=== PATIENT | female | born 1960 | race Caucasian/White ===

== ENCOUNTER → 2023-06-15 10:08 | Outpatient (REF) | payer BC, SELFPAY | LOC: RAD 10:08 | PROVIDERS: ATTENDING PHYSICIAN Internal Medicine | DX: F17.210 Nicotine dependence, cigarettes, uncomplicated (principal); Z12.31 Encounter for screening mammogram for malignant neoplasm of breast | CPT/HCPCS: 71271 ==

== ENCOUNTER → 2023-06-18 16:52 | Outpatient (REF) | payer BC, SELFPAY | LOC: WDC 16:52 | PROVIDERS: ATTENDING PHYSICIAN Internal Medicine | DX: Z12.31 Encounter for screening mammogram for malignant neoplasm of breast (principal) | CPT/HCPCS: 77063; 77067 ==

== ENCOUNTER → 2023-08-06 16:52 | Outpatient (REF) | payer BC, SELFPAY | LOC: HWRAD 16:52 | PROVIDERS: ATTENDING PHYSICIAN Internal Medicine | DX: M25.562 Pain in left knee (principal) | CPT/HCPCS: 73564 ==

== ENCOUNTER → 2023-12-12 08:38 | Outpatient (REF) | payer BC, SELFPAY | LOC: DHSLP 08:38 | PROVIDERS: ATTENDING PHYSICIAN Internal Medicine | DX: G47.33 Obstructive sleep apnea (adult) (pediatric) (principal) | CPT/HCPCS: 95800 ==

== ENCOUNTER 2024-06-30 17:04 | Observation (INO) | payer OTHER, SELFPAY ==
[2024-06-30] VITALS (10 sets, daily range): BP systolic 104–125; BP diastolic 60–93; PULSE 70; BMI 36.1; BMI 35.1
--- NOTE | 2024-06-30 12:07 | ED.GENMED ---
History of Present Illness
General
Chief Complaint: Musculo-Skeletal Complaint
Source: patient
Time Seen by Provider: 06/30/24 11:55
History of Present Illness
History of Present Illness:
64-year-old female presenting to the emergency department from Dr. Santiago office for rehab/correction facility placement. Patient was diagnosed with a left tibial plateau fracture this past after sustaining a fall, seen at [facility] and discharged home the same day. Patient felt she would be able to care for herself with family at home but states it is just not working and she has had increased pain and concerns for falls. She has been taking her p.o. Percocet with
relief every 8 hours although she does note pain starts to creep back up around 6 hours. No other concerns presently.
Past History
Past History
ED Past Medical History: Hypercholesterolemia
ED Past Surgical History: None
Social History
Tobacco: Smoker
Alcohol: None
Drug: None
Personal:
Living: with family
Review of Systems
Review of Systems
All Other Systems: ROS reviewed and negative except as documented in HPI and ROS
Phy Exam
Physical Exam
Physical Exam:
GENERAL: Alert , in no apparent distress
EYE: conjunctiva clear
Head: Normocephalic atraumatic
NECK: Supple,
ENT: mmm.
LUNGS: no acute respiratory distress
NEUROLOGICAL: Alert and oriented
SKIN: Warm and dry, skin intact.
MUSCULOSKELETAL: well perfused. Left lower extremity is held abdomen full extension with knee immobilizer.
PSYCH: Normal and appropriate interaction.
Scores
Heart Failure Risk
Heart Failure Risk Score: Not Applicable
Heart Score for Chest Pain Patients
STEMI patient?: Not applicable
Withdrawal Assessment of Alcohol
Withdrawal Assessment Completed?: Not applicable
Course
Orders/Labs/Results
Orders:
Orders
06/30/24 11:55
Case Management Consult ONCE
Case Management Consult: Discharge Planning
Physical Therapy Consult [Pt Eval And Treat] Urgent
Activity Level: Ambulate
06/30/24 13:05
Occupational Therapy Consult [Ot Eval And Treat] Urgent
Vital Signs
Initial and Last Documented VS:
Initial Vital Signs
Temp Pulse Resp BP Pulse Ox
98.4 F 85 16 104/65 96
06/30/24 10:24 06/30/24 10:24 06/30/24 10:24 06/30/24 10:24 06/30/24 10:24
Last Documented Vital Signs
Temp Pulse Resp BP Pulse Ox
98.4 F 85 16 106/93 97
06/30/24 10:24 06/30/24 10:24 06/30/24 10:24 06/30/24 15:20 06/30/24 15:20
MDM/Problems Addressed
Differential Diagnosis Includes:
Known tibial plateau fracture with inability to perform activities of daily living safely
MDM/Problems Addressed:
64-year-old female presenting to the ER at the request of her orthopedic surgeon to be placed at correction facility/rehab due to recent tibial plateau fracture with inability to perform activities of daily living. Patient took her p.o.
Percocet at 11:00, states pain is currently under control. Will order case management consult and physical therapy consult. Disposition pending.
*Pulse Oximetry
Patient hypoxic: no
*Critical Care Note
Total Time (30-74mins, 75-104mins- exclusive of procedures): Not Applicable
Data Reviewed
Review of Other/Old Records Reveals: Records
Patient Management
Discussion with other providers: Hospitalist
Escalation/DeEscalation of care consider admission/obs:
Case management unfortunately unable to place patient at correction facility/rehab today. She is unsafe to be discharged home and increased fall risk. Will admit to hospitalist for continued care until patient can be placed at correction
facility.
ED Attending Note
-
Portions of this chart may have been created with voice recognition software.� Occasional wrong word or��sound alike� substitutions may have occurred due to the inherent limitations of voice recognition software.
Discharge Plan
Departure
Patient Disposition: Admit
Date of Disposition: 06/30/24
Time of Disposition: 15:03
Presentation/result/management discussed w/ accepting MD/DO: Hospitalist
Discharge Problem:
Closed fracture of left tibial plateau
Prescriptions:
No Action
Repatha SureClick 140 mg/mL Pen Injector
140 mg SC Q2W
oxycodone-acetaminophen 5-325 mg Tablet
1 tab PO Q6HPRN PRN (Reason: severe pain)
cholecalciferol (vitamin D3) [Vitamin D3] 25 mcg (1,000 unit) Tablet
25 mcg PO DAILY
Ozempic 0.25 mg or 0.5 mg(2 mg/1.5 mL) Pen Injector
0.5 mg SC FR
Rx Instructions:
for 4 weeks
Referrals:
UNKNOWN,NO INTERVIEW [Family Provider] -
Interventions
Interventions:
*Risk Screen - Suicide Last Done: 06/30/24 10:24
*General Assessment Last Done: 06/30/24 10:24
*Neglect/Abuse Screening Last Done: 06/30/24 10:24
*ED- Fall Risk Assessment Last Done: 06/30/24 12:05
*ED COVID-19 Vaccine History Last Done: 06/30/24 10:23
ED-Musculoskeletal Assessment Last Done: 06/30/24 15:01
Discharge Date and Time
Print Language: ARMENIAN
--- NOTE | 2024-06-30 13:54 | CM ---
Addendum entered by Luciana Menchaca 06/30/24 15:08:
[employer] contacted senior care facilities for bed availability; No Bed @ [facility]; [facility] declined referral; [facility] will review insurance; and get back to us with status.
[employer] Writer contacted patient's insurance company; patient's plan does not include skilled rehab coverage
Per patient's Ortho physician, Dr. Santiago, patient is NWB LLE for 5-6 weeks; patient reported that she has no one to assist her in the home and does not have the means to self pay for services
ED Physician notified; patient is being admitted
Original Note:
Met with patient at bedside; initial assessment and case management consult completed
Pharmacy verified: [facility]
Family Physician verified: Dr. Carlisle @ [email or web address];
Patient lives with her roommate in a one floor manufactured home; bathroom has stall shower w/ bench, grab bar
At baseline, she was independent with ADLs; unemployed; does not drive
Currently unable to weight bear to ambulate
Will need ambulance transportation
PT/OT recommended SNF; patient is agreeable; SNF site options in her zip code identified; referrals sent to [facility], [facility], and [facility]
Plan: Discharge to SNF pending bed availability and Authorization approval
--- NOTE | 2024-06-30 16:39 | HPS.HSE ---
Addendum entered and electronically signed by Tu Otero MD 06/30/24 16:53:
Non weight bearing for 5-6 weeks as per ortho.
Original Note:
Family Physician
-
Family Physician: NO INTERVIEW UNKNOWN
Chief Complaint
-
knee pain
History of Present Illness
64-year-old female past medical history of psoriatic arthritis, diabetes, hyperlipidemia, depression, obesity, who suffered a fall this past and had a left tibial plateau fracture with knee pain. She was seen at [facility] and
discharged home the same day. She felt like she was able to care for herself but was not able to. She has increased pain and is concerned about falling again. Cannot walk to bathroom. She has been taking p.o. Percocet with relief every 8 hours
although she does note pain started to return around [address] Mckeon in the office today who recommended that she come in for rehab placement.
Smokes half a pack of cigarettes per day. Drinks alcohol 2 times per week.
Medical History
Past Medical History
Past Medical History: Reports Other ( psoriatic arthritis, diabetes, hyperlipidemia, depression, obesity)
Past Surgical History: Reports None
Social History
Tobacco: Smoker
Alcohol: Occasional
Drug: None
Family History
Family History: Not pertinent
Allergies / Home Medications
Allergies reflects when Allergies were last updated in [facility].
Home Medications with original date entered in [facility]
Allergy/Medication List:
Allergies
Allergy/AdvReac Type Severity Reaction Status Date / Time
strawberry Allergy Hives Verified 06/30/24 10:26
Home Medications
cholecalciferol (vitamin D3) 25 mcg (1,000 unit) tablet (Vitamin D3) 25 mcg PO DAILY 06/30/24
evolocumab 140 mg/mL subcutaneous pen injector (Repatha SureClick) 140 mg SC Q2W 06/30/24
oxycodone-acetaminophen 5 mg-325 mg tablet 1 tab PO Q6HPRN PRN severe pain 06/30/24
semaglutide 0.25 mg or 0.5 mg (2 mg/1.5 mL) subcutaneous pen injector (Ozempic) 0.5 mg SC FR 06/30/24
Review of Systems
-
History Source: Patient
A 12 point ROS was completed and negative except as noted: Yes
Constitutional: Reports No Symptoms
EENT: Reports No Symptoms
Respiratory: Reports No Symptoms
Cardiac: Reports No Symptoms
Abdomen/GI: Reports No Symptoms
: Reports No Symptoms
Musculoskeletal: Reports No Symptoms
Skin: Reports No Symptoms
Neurological: Reports No Symptoms
Endocrine: Reports No Symptoms
Hematologic/Lymphatic: Reports No Symptoms
Psych: Reports No Symptoms
Physical Exam
Vital Signs
Vital Signs
Temp Pulse Resp BP Pulse Ox
98.4 F 85 16 125/74 93
06/30/24 10:24 06/30/24 10:24 06/30/24 10:24 06/30/24 16:01 06/30/24 16:15
Physical Exam
General: Well Developed, Well Nourished and No Apparent Distress
HEENT: NormoCephalic, Moist mucous membranes and Atraumatic
Respiratory: Clear
Cardiac: S1/S2 and Regular Rhythm; No Murmur or Rub
GI: Soft, Non Tender, Non Distended and Normal Bowel Sounds; No Organomegaly
Rectal: Deferred by Provider
Musculoskeletal: No Clubbing, No Cyanosis and No Edema
Skin: No Rash
Neuro: Nonfocal/grossly intact
Data Reviewed
-
Lab Data: Labs Reviewed by me
Old Records: Reviewed
Impression/Plan
-
IMPRESSION:
PLAN:
# Left tibial plateau fracture after a fall
- PT/OT, case management unable to place today
- Continue Percocet
- Wearing brace
Psoriatic arthritis
Type 2 diabetes
- On semaglutide
Hyperlipidemia
- On Repatha
Active smoker
- Smokes half pack of cigarettes per day.
Full code
DVT prophylaxis�heparin
Regular diet
[2024-06-30] MEDS: HEPARIN SC (21:29)
[2024-06-30] MEDS: DESENEX/MITRAZOL/ZEASORB 1 APPLIC TOPICAL (22:43)
[2024-06-30 23:53] LABS: Glucose - Point of Care 113 mg/dl (70-99)
[2024-07-01] MEDS: PERCOCET 5/325 1 TABLET PO ×2 (05:28→16:03)
[2024-07-01 07:40] VITALS: BP 132/71
[2024-07-01 08:48] LABS: % Basophils 0.7 % (0-2); % Eosinophils 2.1 % (0-6); % Immature Granulocytes 0.3 % (0-0.5); % Lymphocytes 21.1 % (20.5-51.1); % Monocytes 8.1 % (1.7-9.3); % Neutrophils 67.7 % (42.2-75.2); Absolute Basophils 0.1 10^3/uL (0-0.2); Absolute Eosinophils 0.3 10^3/uL (0-0.7); Absolute Immature Granulocytes 0.1 10^3/uL (0-0.05); Absolute Lymphocytes 3.2 10^3/uL (1.2-3.4); Absolute Monocytes 1.2 10^3/uL (0.1-0.6); Absolute Neutrophils 10.4 10^3/uL (1.4-6.5); Hematocrit 42.2 % (37.0-47.0); Hemoglobin 13.9 g/dL (12.0-16.0); Mean Corp Hgb Conc. 32.9 g/dL (33.0-37.0); Mean Corpuscular Hgb 29.1 pg (27.0-31.0); Mean Corpuscular Volume 88.3 fL (81.0-99.0); Mean Platelet Volume 9.1 fL (7.4-10.4); Nucleated Red Blood Cells % 0 %; Platelet Count 506 10^3/uL (130-400); Red Blood Cell Count 4.78 10^6/uL (4.20-5.40); Red Cell Dist. Width 14.9 % (11.5-14.5); White Blood Cell Count 15.3 10^3/uL (4.8-10.8)
[2024-07-01] MEDS: VITAMIN D3 (cholecalciferol) 25 MCG PO (09:07)
[2024-07-01] MEDS: DESENEX/MITRAZOL/ZEASORB 1 APPLIC TOPICAL ×2 (09:08→20:41)
[2024-07-01] MEDS: HEPARIN SC ×2 (09:15→20:40)
[2024-07-01 09:23] LABS: ALT (SGPT) 28 U/L (0-35); AST (SGOT) 30 U/L (14-36); Albumin 3.7 g/dl (3.5-5.0); Alkaline Phosphatase 85 U/L (38-126); Blood Urea Nitrogen 10 mg/dl (7-17); Calcium 10.4 mg/dl (8.4-10.2); Carbon Dioxide 28 mmol/L (22-30); Chloride 106 mmol/L (98-107); Estimated Creatinine Clearance 102 ml/min; Glucose 112 mg/dl (70-99); Potassium 4.7 mmol/L (3.5-5.1); Sodium 141 mmol/L (135-145); Total Bilirubin 0.7 mg/dl (0.2-1.3); Total Protein 6.2 g/dl (6.3-8.2); eGFR > 60.00
--- NOTE | 2024-07-01 10:20 | CM ---
Addendum entered by Ness Vidal 07/02/24 13:59:
late entry, Observation form provided
Addendum entered by Ness Vidal 07/01/24 15:00:
Spoke with [facility] department, they will see patient and go over medicaid and qualifications.
Cm discussed possibly going on [employer] and applying for insurance if she does not qualify.
Financial form for skilled rehab being completed by patient.
Went over costs for private pay for skilled rehab and private pay for VN, per patient she does not have the funds.
Again discussed possibility of going home with a friend or family member, patient says she has no one that can stay with her and she is unable to get up from a seated position without assistance. (NWB)
Addendum entered by Ness Vidal 07/01/24 12:47:
Discussed with patient.
She contacted former employer, [employer] should not be active, was only active for 30 days post termination and they are working on changing.
Patient agreeable to fillig out financial forms for skilled rehab.
left VM for [facility] re eligibility for medicaid
Addendum entered by Ness Vidal 07/01/24 11:29:
TC to patients secondary insurance -Managed Care reference based pricing (medical bill repricer) spoke with Peg, policy is active. Per Peg this is basically a service for bill repricing. No inpatient benefit, no skilled benefit. Patient pays
all bills.
TC to admissions, they will call and verify.
Original Note:
CM spoke with patient bedside.
Discussed patient reaching out to former employer to see when her benefits will be terminated.
Per C active effective 04/25/24.
Patient continues to state no benefits thru employer.
Discussed home with home care, and possibly a commode.
Also discussed possibility of filling out financial information for a skilled rehab to see if she would be eligible for medicaid.
Patient worried she may lose her unemployment benefits.
f/u with patient for d/c plan.
--- NOTE | 2024-07-01 11:28 | W.PN.HOSP.TC ---
Today's Communication/Plan
-
PT.
Placement to rehab
Assessment / Plan
Assessment / Plan
Impression
Status post mechanical fall with left tibial plateau fracture
Acute ambulatory dysfunction
Leukocytosis
Other conditions:
Psoriatic arthritis
Obesity with BMI of 35 treated with Ozempic.
Tobacco use disorder 1 pack a day
Plan:
Left tibial plateau fracture
Patient was assessed by orthopedics as outpatient with no indication for surgical intervention
Continue PT OT
Case management consultation for placement to fdc facility.
Elevated WBC (patient reports chronic)
Afebrile.
Complains of mild urinary symptoms
Will check urinalysis and reflex to culture.
Follow WBC trend
'Type 2 diabetes on Ozempic likely for weight loss
Check hemoglobin A1c
Dyslipidemia
Anticipated Discharge: 24 - 48 hours
Subjective/Interval History
-
Date of Service: July 01, 2024
Objective Data
-
Labs:
Laboratory Results
07/01/24
08:28
WBC 15.3 H
Hgb 13.9
Hct 42.2
Plt Count 506 H
Sodium 141
Potassium 4.7
Chloride 106
Carbon Dioxide 28
BUN 10
Creatinine 0.6
Glucose 112 H
Calcium 10.4 H
Total Bilirubin 0.7
AST 30
ALT 28
Alkaline Phosphatase 85
Vital Signs:
Vital Signs
Temp Pulse Resp BP Pulse Ox
97.7 F 69 17 132/71 96
07/01/24 07:40 07/01/24 07:40 07/01/24 07:40 07/01/24 07:40 07/01/24 07:40
I&O
05/06/25 05/07/25 05/08/25
06:59 06:59 06:59
Intake Total 960 / 960
Balance 960 / 960
Physical Exam
-
General: Well Developed and No Apparent Distress
HEENT: Normocephalic, Atraumatic and Moist Mucous Membranes
Respiratory: Clear to Auscultation
Cardiac: Regular Rhythm and S1/S2; Negative Murmur, Rub or Gallop
GI: Soft, Nontender, Nondistended and Normal Bowel Sounds; Negative Organomegaly
Rectal: Deferred by Provider
Musculoskeletal: No Clubbing, No Cyanosis and No Edema
Skin: Negative Rash
Neuro: Nonfocal/Grossly Intact
[2024-07-01 12:09] VITALS: BP 142/81; PULSE 75; O2SAT 98
[2024-07-01 12:12] VITALS: BP 142/81; PULSE 75; O2SAT 98
[2024-07-01 13:20] LABS: Urine Albumin 1+ (Neg - Trace); Urine Bilirubin Negative (Negative); Urine Character Clear (Clear); Urine Color Amber; Urine Glucose Negative (Negative); Urine Ketone Negative (Negative); Urine Leukocyte 2+ (Negative); Urine Nitrite Negative (Negative); Urine Occult Blood 2+ (Negative); Urine Specific Gravity 1.025 (<1.030); Urine Urobilinogen 1+ (Neg - 1+)
[2024-07-01 14:16] LABS: Urine Squamous Cell >30 /LPF (Few)
[2024-07-01 14:17] LABS: Urine Bacteria Few (Negative)
[2024-07-01 15:21] VITALS: BP 142/75
[2024-07-01 23:06] VITALS: BP 146/76
[2024-07-02] MEDS: PERCOCET 5/325 1 TABLET PO ×4 (00:55→23:14)
[2024-07-02 06:46] LABS: Hematocrit 39.1 % (37.0-47.0); Hemoglobin 13.2 g/dL (12.0-16.0); Mean Corp Hgb Conc. 33.8 g/dL (33.0-37.0); Mean Corpuscular Hgb 29.9 pg (27.0-31.0); Mean Corpuscular Volume 88.7 fL (81.0-99.0); Platelet Count 486 10^3/uL (130-400); Red Blood Cell Count 4.41 10^6/uL (4.20-5.40); Red Cell Dist. Width 14.6 % (11.5-14.5); White Blood Cell Count 16.9 10^3/uL (4.8-10.8)
[2024-07-02 06:47] LABS: Absolute Neutrophils -Man Diff 9.1 10^3/uL (1.4-6.5); Anisocytosis 1+; Band Neutrophils 0 % (0-3); Eosinophils 1 % (0-6); Howell Jolly Bodies 1+; Lymphocytes 43 % (20-51); Monocytes 2 % (2-9); Normal RBC Morphology No; Platelets Checked Yes; Segmented Neutrophils 54 % (42-75)
[2024-07-02 06:48] LABS: Total Cells Counted 100
[2024-07-02 07:00] VITALS: BP 138/70
[2024-07-02] MEDS: VITAMIN D3 (cholecalciferol) 25 MCG PO (09:27)
[2024-07-02] MEDS: DESENEX/MITRAZOL/ZEASORB 1 APPLIC TOPICAL ×2 (09:27→20:29)
[2024-07-02] MEDS: HEPARIN SC ×2 (09:31→20:29)
[2024-07-02 14:16] VITALS: BP 120/59
--- NOTE | 2024-07-02 15:02 | CM ---
Spoke with patient multiple times today.
Patient seen by [facility] re benefits.
per patient she still has workman's comp but it has been suspended and she will not receive checks for about 4 weeks.
per patient she spoke with social security and she will be eligible in August.
Per Patient she does not have any active insurance.
Per patient she has no one to assist her at home and cannot afford to private pay for skilled rehab or home services.
CM again discussed patient calling [employer] for insurance.
MD updated.
Patient remains NWB LLE.
patient transferred to [address] [place] [address].
plan: dispo pending.
--- NOTE | 2024-07-02 15:15 | W.PN.HOSP.TC ---
Today's Communication/Plan
-
Placement
Assessment / Plan
Assessment / Plan
Impression
Status post mechanical fall with left tibial plateau fracture
Acute ambulatory dysfunction
Leukocytosis
Other conditions:
Psoriatic arthritis
Obesity with BMI of 35 treated with Ozempic.
Tobacco use disorder 1 pack a day
Plan:
Left tibial plateau fracture
Patient was assessed by orthopedics as outpatient with no indication for surgical intervention
Continue PT OT
Case management consultation for placement to senior living facility.
Elevated WBC (patient reports chronic)
Afebrile.
Complains of mild urinary symptoms. Urine culture with contaminants
Will check urinalysis and reflex to culture.
Follow WBC trend
'Type 2 diabetes on Ozempic likely for weight loss
Check hemoglobin A1c
Dyslipidemia
Anticipated Discharge: 24 - 48 hours
Subjective/Interval History
-
Date of Service: July 02, 2024
Objective Data
-
Labs:
Laboratory Results
07/02/24
06:09
WBC 16.9 H
Hgb 13.2
Hct 39.1
Plt Count 486 H
Vital Signs:
Vital Signs
Temp Pulse Resp BP Pulse Ox
98.2 F 80 16 120/59 96
07/02/24 07:00 07/02/24 14:16 07/02/24 14:16 07/02/24 14:16 07/02/24 14:16
I&O
07/01/24 07/02/24 07/03/24
06:59 06:59 06:59
Intake Total 960 / 960 480 / 480
Balance 960 / 960 480 / 480
Physical Exam
-
General: Well Developed and No Apparent Distress
HEENT: Normocephalic, Atraumatic and Moist Mucous Membranes
Respiratory: Clear to Auscultation
Cardiac: Regular Rhythm and S1/S2; Negative Murmur, Rub or Gallop
GI: Soft, Nontender, Nondistended and Normal Bowel Sounds; Negative Organomegaly
Rectal: Deferred by Provider
Musculoskeletal: No Clubbing, No Cyanosis and No Edema
Skin: Negative Rash
Neuro: Nonfocal/Grossly Intact
[2024-07-02 20:27] VITALS: BP 121/66
[2024-07-03 00:47] VITALS: BP 145/76
[2024-07-03 07:17] VITALS: BP 132/77
[2024-07-03] MEDS: PERCOCET 5/325 1 TABLET PO ×3 (07:20→22:20)
[2024-07-03] MEDS: DESENEX/MITRAZOL/ZEASORB 1 APPLIC TOPICAL ×2 (07:21→20:20)
[2024-07-03] MEDS: VITAMIN D3 (cholecalciferol) 25 MCG PO (07:21)
[2024-07-03] MEDS: HEPARIN SC ×2 (07:22→20:20)
--- NOTE | 2024-07-03 10:47 | CM ---
Addendum entered by Mary Pressley RN 07/03/24 11:06:
Call placed to [facility] [phone] with enrollment. Explained need for assistance at home and no insurance.
Needs support at home VS SNF .
PLAN Dc planning on going.
Original Note:
Spoke with Alexa from [facility]
She is working with patient on applying for medicaid.
alexa needs SS card and letter from [facility] that says her benefits have been suspended.
TC to [employer] spoke with statement services representative re insurance. Insurance enrollment period is December thru February and anytime during the year for a life changing event. Benefits would become active on the of the next month. (July 26).
CM will continue to follow.
[2024-07-03] MEDS: NON-FORMULARY ITEM 1 UNIT SC (14:21)
[2024-07-03 15:57] VITALS: BP 122/70
--- NOTE | 2024-07-03 16:12 | W.PN.HOSP.TC ---
Today's Communication/Plan
-
Placement
Assessment / Plan
Assessment / Plan
Impression
Status post mechanical fall with left tibial plateau fracture
Acute ambulatory dysfunction
Leukocytosis
Other conditions:
Psoriatic arthritis
Obesity with BMI of 35 treated with Ozempic.
Tobacco use disorder 1 pack a day
Plan:
Left tibial plateau fracture
Patient was assessed by orthopedics as outpatient with no indication for surgical intervention
Continue PT OT
[facility]
Elevated WBC (patient reports chronic)
Afebrile.
Complains of mild urinary symptoms. Urine culture with contaminants
Will check urinalysis and reflex to culture.
Follow WBC trend
'Type 2 diabetes on Ozempic likely for weight loss
Dyslipidemia
Anticipated Discharge: 24 - 48 hours
Subjective/Interval History
-
Date of Service: July 03, 2024
Objective Data
-
Vital Signs:
Vital Signs
Temp Pulse Resp BP Pulse Ox
97.5 F 73 14 122/70 95
07/03/24 15:57 07/03/24 15:57 07/03/24 15:57 07/03/24 15:57 07/03/24 15:57
I&O
07/02/24 07/03/24 07/04/24
06:59 06:59 06:59
Intake Total 480 / 480 720 / 720
Balance 480 / 480 720 / 720
Physical Exam
-
General: Well Developed and No Apparent Distress
HEENT: Normocephalic, Atraumatic and Moist Mucous Membranes
Respiratory: Clear to Auscultation
Cardiac: Regular Rhythm and S1/S2; Negative Murmur, Rub or Gallop
GI: Soft, Nontender, Nondistended and Normal Bowel Sounds; Negative Organomegaly
Rectal: Deferred by Provider
Musculoskeletal: No Clubbing, No Cyanosis and No Edema
Skin: Negative Rash
Neuro: Nonfocal/Grossly Intact
[2024-07-04 01:26] VITALS: BP 133/74
[2024-07-04] MEDS: PERCOCET 5/325 1 TABLET PO ×3 (05:22→18:34)
[2024-07-04 08:26] VITALS: BP 137/78
[2024-07-04] MEDS: HEPARIN SC ×2 (09:54→20:46)
[2024-07-04] MEDS: VITAMIN D3 (cholecalciferol) 25 MCG PO (09:54)
[2024-07-04] MEDS: DESENEX/MITRAZOL/ZEASORB 1 APPLIC TOPICAL ×2 (09:54→20:46)
--- NOTE | 2024-07-04 10:05 | W.PN.HOSP.TC ---
Today's Communication/Plan
-
Assessment / Plan
Assessment / Plan
Impression
Status post mechanical fall with left tibial plateau fracture
Acute ambulatory dysfunction
Leukocytosis
Other conditions:
Psoriatic arthritis
Obesity with BMI of 35 treated with Ozempic.
Tobacco use disorder 1 pack a day
Plan:
Left tibial plateau fracture
Patient was assessed by orthopedics as outpatient with no indication for surgical intervention
Continue PT OT
Case management consultation for placement to long-term facility.
Elevated WBC (patient reports chronic)
Afebrile.
Complains of mild urinary symptoms. Urine culture with contaminants
Urine culture contaminated. No symptoms
Follow WBC trend
'Type 2 diabetes on Ozempic likely for weight loss
Dyslipidemia
Anticipated Discharge: > 48 hours
Subjective/Interval History
-
Date of Service: July 04, 2024
Seen and examined. No new complaints. No acute overnight events.
Still having some pain. Getting out of bed to use the bedside commode with the assistance of bedside nurse
Objective Data
-
Vital Signs:
Vital Signs
Temp Pulse Resp BP Pulse Ox
97.7 F 65 20 137/78 95
07/04/24 08:26 07/04/24 08:26 07/04/24 08:26 07/04/24 08:26 07/04/24 08:26
I&O
07/03/24 07/04/24 07/05/24
06:59 06:59 06:59
Intake Total 720 / 720 960 / 960
Balance 720 / 720 960 / 960
[2024-07-04 15:50] VITALS: BP 136/83
[2024-07-05] MEDS: PERCOCET 5/325 1 TABLET PO ×3 (00:55→18:09)
[2024-07-05 08:13] VITALS: BP 127/72
[2024-07-05] MEDS: HEPARIN SC ×2 (08:47→20:39)
[2024-07-05] MEDS: DESENEX/MITRAZOL/ZEASORB 1 APPLIC TOPICAL ×2 (09:10→20:38)
[2024-07-05] MEDS: VITAMIN D3 (cholecalciferol) 25 MCG PO (09:13)
[2024-07-05] MEDS: NON-FORMULARY ITEM 1 UNIT SC (11:46)
--- NOTE | 2024-07-05 12:11 | W.PN.HOSP.TC ---
Today's Communication/Plan
-
Assessment / Plan
Assessment / Plan
Impression
Status post mechanical fall with left tibial plateau fracture
Acute ambulatory dysfunction
Leukocytosis
Other conditions:
Psoriatic arthritis
Obesity with BMI of 35 treated with Ozempic.
Tobacco use disorder 1 pack a day
Plan:
Left tibial plateau fracture
Patient was assessed by orthopedics as outpatient with no indication for surgical intervention
Continue PT OT
Case management consultation for placement to long-term facility.
Elevated WBC (patient reports chronic)
Afebrile.
Complains of mild urinary symptoms. Urine culture with contaminants
Urine culture contaminated. No symptoms
Follow WBC trend
'Type 2 diabetes on Ozempic likely for weight loss
Dyslipidemia
Anticipated Discharge: > 48 hours
Subjective/Interval History
-
Date of Service: July 05, 2024
Seen and examined. No new complaints. No acute overnight events.
Objective Data
-
Vital Signs:
Vital Signs
Temp Pulse Resp BP Pulse Ox
97.8 F 65 21 127/72 96
07/05/24 08:13 07/05/24 08:13 07/05/24 08:13 07/05/24 08:13 07/05/24 08:13
I&O
07/04/24 07/05/24 07/06/24
06:59 06:59 06:59
Intake Total 960 / 960 1650 / 1650 960 / 960
Balance 960 / 960 1650 / 1650 960 / 960
Physical Exam
-
General: Well Developed and Well Nourished
HEENT: Normocephalic and Atraumatic
Respiratory: Clear to Auscultation
Cardiac: Regular Rhythm and S1/S2
Breast: Deferred by me
GI: Soft, Nontender and Nondistended
Rectal: Deferred by Provider
Genito-urinary: No Costovertebral Tender
Musculoskeletal: No Clubbing, No Cyanosis and No Edema
Skin: Warm and Dry
Neuro: Awake, Alert, Oriented and AO x 3
Psych: Calm
[2024-07-05 15:51] VITALS: BP 114/65
[2024-07-05 16:06] VITALS: BP 114/65; PULSE 68; O2SAT 97
[2024-07-05] MEDS: COLACE 100 MG PO (22:56)
[2024-07-05] MEDS: MIRALAX 17 GRAMS PO (22:56)
[2024-07-05 23:00] VITALS: BP 119/63
[2024-07-06] MEDS: PERCOCET 5/325 1 TABLET PO ×3 (00:23→16:42)
[2024-07-06 07:15] VITALS: BP 112/60
[2024-07-06] MEDS: VITAMIN D3 (cholecalciferol) 25 MCG PO (07:50)
[2024-07-06] MEDS: DESENEX/MITRAZOL/ZEASORB TOPICAL (07:56)
[2024-07-06] MEDS: HEPARIN SC ×2 (07:56→20:51)
[2024-07-06] MEDS: COLACE PO ×2 (07:56→20:50)
[2024-07-06 15:10] VITALS: BP 122/66
--- NOTE | 2024-07-06 16:32 | W.PN.HOSP.TC ---
Today's Communication/Plan
-
Placement
Assessment / Plan
Assessment / Plan
Impression
Status post mechanical fall with left tibial plateau fracture
Acute ambulatory dysfunction
Leukocytosis
Other conditions:
Psoriatic arthritis
Obesity with BMI of 35 treated with Ozempic.
Tobacco use disorder 1 pack a day
Plan:
Left tibial plateau fracture
Patient was assessed by orthopedics as outpatient with no indication for surgical intervention
Continue PT OT
Case management consultation for placement to half-way facility.
Elevated WBC (patient reports chronic)
Afebrile.
Complains of mild urinary symptoms. Urine culture with contaminants
Urine culture contaminated. No symptoms
Follow WBC trend
'Type 2 diabetes on Ozempic likely for weight loss
Dyslipidemia
Anticipated Discharge: 24 - 48 hours
Subjective/Interval History
-
Date of Service: July 06, 2024
Objective Data
-
Vital Signs:
Vital Signs
Temp Pulse Resp BP Pulse Ox
97.9 F 76 18 122/66 98
07/06/24 15:10 07/06/24 15:10 07/06/24 15:10 07/06/24 15:10 07/06/24 15:10
I&O
07/05/24 07/06/24 07/07/24
06:59 06:59 06:59
Intake Total 1650 / 1650 2730 / 2730
Balance 1650 / 1650 2730 / 2730
Physical Exam
-
General: Well Developed and Well Nourished
HEENT: Normocephalic and Atraumatic
Respiratory: Clear to Auscultation
Cardiac: Regular Rhythm and S1/S2
Breast: Deferred by me
GI: Soft, Nontender and Nondistended
Rectal: Deferred by Provider
Genito-urinary: No Costovertebral Tender
Musculoskeletal: No Clubbing, No Cyanosis and No Edema
Skin: Warm and Dry
Neuro: Awake, Alert, Oriented and AO x 3
Psych: Calm
--- NOTE | 2024-07-06 17:26 | CM ---
[facility] is waiting for pt to provide unemployment letter.
Call placed to [facility] [phone] with enrollment. Explained need for assistance at home and no insurance.
Needs support at home VS SNF .
Continue PT OT evals
PLAN Dc planning on going.
[2024-07-06] MEDS: DESENEX/MITRAZOL/ZEASORB 1 APPLIC TOPICAL (20:51)
[2024-07-06 23:40] VITALS: BP 135/77
[2024-07-07] MEDS: PERCOCET 5/325 1 TABLET PO ×4 (00:03→23:15)
[2024-07-07 07:37] VITALS: BP 112/57
[2024-07-07] MEDS: VITAMIN D3 (cholecalciferol) 25 MCG PO (08:10)
[2024-07-07] MEDS: HEPARIN SC ×2 (08:10→08:15)
[2024-07-07] MEDS: COLACE 100 MG PO ×2 (08:10→21:54)
[2024-07-07] MEDS: DESENEX/MITRAZOL/ZEASORB TOPICAL (08:11)
[2024-07-07] MEDS: HEPARIN 5000 UNITS SC ×2 (08:19→21:54)
[2024-07-07 13:42] VITALS: BP 120/65; PULSE 68; O2SAT 98
[2024-07-07] MEDS: MIRALAX 17 GRAMS PO (15:02)
[2024-07-07 15:07] VITALS: BP 113/57
--- NOTE | 2024-07-07 15:30 | W.PN.HOSP.TC ---
Today's Communication/Plan
-
Placement pending insurance
Assessment / Plan
Assessment / Plan
Impression
Status post mechanical fall with left tibial plateau fracture
Acute ambulatory dysfunction
Leukocytosis
Other conditions:
Psoriatic arthritis
Obesity with BMI of 35 treated with Ozempic.
Tobacco use disorder 1 pack a day
Plan:
Left tibial plateau fracture
Patient was assessed by orthopedics as outpatient with no indication for surgical intervention
Continue PT OT
[facility] management consultation for placement to [facility].
Elevated WBC (patient reports chronic)
Afebrile.
Complains of mild urinary symptoms. Urine culture with contaminants
Urine culture contaminated. No symptoms
Follow WBC trend
'Type 2 diabetes on Ozempic likely for weight loss
Dyslipidemia
Anticipated Discharge: Within 24 hours
Subjective/Interval History
-
Date of Service: July 07, 2024
Objective Data
-
Vital Signs:
Vital Signs
Temp Pulse Resp BP Pulse Ox
98.5 F 72 14 113/57 95
07/07/24 15:07 07/07/24 15:07 07/07/24 15:07 07/07/24 15:07 07/07/24 15:07
I&O
07/06/24 07/07/24 07/08/24
06:59 06:59 06:59
Intake Total 2730 / 2730 1720 / 1720
Balance 2730 / 2730 1720 / 1720
[2024-07-07] MEDS: DESENEX/MITRAZOL/ZEASORB 1 APPLIC TOPICAL (21:52)
[2024-07-07 23:00] VITALS: BP 141/69
[2024-07-08 07:31] VITALS: BP 134/67
[2024-07-08] MEDS: PERCOCET 5/325 1 TABLET PO ×3 (08:42→22:13)
[2024-07-08] MEDS: VITAMIN D3 (cholecalciferol) 25 MCG PO (08:42)
[2024-07-08] MEDS: COLACE 100 MG PO ×2 (08:43→22:08)
[2024-07-08] MEDS: HEPARIN 5000 UNITS SC ×2 (08:43→22:08)
[2024-07-08] MEDS: DESENEX/MITRAZOL/ZEASORB 1 APPLIC TOPICAL ×2 (08:44→22:09)
[2024-07-08 08:53] VITALS: BP 131/65; PULSE 69; O2SAT 94
[2024-07-08 14:59] VITALS: BP 116/62
--- NOTE | 2024-07-08 16:08 | W.PN.HOSP.TC ---
Today's Communication/Plan
-
Uninsured patient with lower extremity fracture and acute ambulatory dysfunction.
Ongoing disposition efforts with pending medical assistance set up and rehab placement
Assessment / Plan
Assessment / Plan
Impression
Status post mechanical fall with left tibial plateau fracture
Acute ambulatory dysfunction
Leukocytosis
Other conditions:
Psoriatic arthritis
Obesity with BMI of 35 treated with Ozempic.
Tobacco use disorder 1 pack a day
Plan:
Left tibial plateau fracture
Patient was assessed by orthopedics as outpatient with no indication for surgical intervention
Continue PT OT
Case management consultation for placement to correction facility.
Elevated WBC (patient reports chronic)
Afebrile.
Complains of mild urinary symptoms. Urine culture with contaminants
Urine culture contaminated. No symptoms
Follow WBC trend
'Type 2 diabetes on Ozempic likely for weight loss
Dyslipidemia
Anticipated Discharge: 24 - 48 hours
Subjective/Interval History
-
Date of Service: July 08, 2024
Objective Data
-
Vital Signs:
Vital Signs
Temp Pulse Resp BP Pulse Ox
97.8 F 69 14 116/62 96
07/08/24 14:59 07/08/24 14:59 07/08/24 14:59 07/08/24 14:59 07/08/24 14:59
I&O
07/07/24 07/08/24 07/09/24
06:59 06:59 06:59
Intake Total 1720 / 1720 960 / 960 1200 / 1200
Balance 1720 / 1720 960 / 960 1200 / 1200
[2024-07-08 23:20] VITALS: BP 157/73
[2024-07-09] MEDS: PERCOCET 5/325 1 TABLET PO ×3 (05:56→23:25)
[2024-07-09 07:31] VITALS: BP 121/67
[2024-07-09] MEDS: VITAMIN D3 (cholecalciferol) 25 MCG PO (08:14)
[2024-07-09] MEDS: COLACE 100 MG PO ×2 (08:15→20:54)
[2024-07-09] MEDS: HEPARIN 5000 UNITS SC ×2 (08:15→20:56)
[2024-07-09] MEDS: DESENEX/MITRAZOL/ZEASORB 1 APPLIC TOPICAL ×2 (08:19→20:55)
--- NOTE | 2024-07-09 11:05 | W.PN.HOSP.TC ---
Today's Communication/Plan
-
await placement
CM aware
Assessment / Plan
Assessment / Plan
Impression
Status post mechanical fall with left tibial plateau fracture
Acute ambulatory dysfunction
Leukocytosis
Other conditions:
Psoriatic arthritis
Obesity with BMI of 35 treated with Ozempic.
Tobacco use disorder 1 pack a day
Plan:
Left tibial plateau fracture
Patient was assessed by orthopedics as outpatient with no indication for surgical intervention
Continue PT OT
Case management consultation for placement to senior living facility.
Elevated WBC (patient reports chronic)
Afebrile.
Complains of mild urinary symptoms. Urine culture with contaminants
Urine culture contaminated. No symptoms
Follow WBC trend
'Type 2 diabetes on Ozempic likely for weight loss
Dyslipidemia
Anticipated Discharge: Today
Subjective/Interval History
-
Date of Service: July 09, 2024
intermittent left leg pain
Objective Data
-
Vital Signs:
Vital Signs
Temp Pulse Resp BP Pulse Ox
97.6 F 62 16 121/67 100
07/09/24 07:31 07/09/24 07:31 07/09/24 07:31 07/09/24 07:31 07/09/24 07:31
I&O
07/08/24 07/09/24 07/10/24
06:59 06:59 06:59
Intake Total 960 / 960 1680 / 1680
Balance 960 / 960 1680 / 1680
Physical Exam
-
HEENT: Normocephalic and Atraumatic
Respiratory: Clear to Auscultation
Cardiac: Regular Rhythm and S1/S2
Breast: Deferred by me
GI: Soft, Nontender and Nondistended
Rectal: Deferred by Provider
Genito-urinary: No Costovertebral Tender
Musculoskeletal: No Clubbing, No Cyanosis and No Edema
Skin: Warm and Dry
Neuro: Awake, Alert, Oriented and AO x 3
Psych: Calm
[2024-07-09 13:02] VITALS: BP 121/67; PULSE 62
[2024-07-09 14:49] VITALS: BP 129/63
[2024-07-09 23:00] VITALS: BP 141/70
[2024-07-10] MEDS: PERCOCET 5/325 1 TABLET PO ×3 (05:26→19:57)
[2024-07-10 07:22] VITALS: BP 113/66
[2024-07-10] MEDS: COLACE 100 MG PO ×2 (08:37→21:44)
[2024-07-10] MEDS: VITAMIN D3 (cholecalciferol) 25 MCG PO (08:37)
[2024-07-10] MEDS: HEPARIN 5000 UNITS SC ×2 (08:37→21:45)
[2024-07-10] MEDS: DESENEX/MITRAZOL/ZEASORB 1 APPLIC TOPICAL ×2 (08:38→21:44)
--- NOTE | 2024-07-10 11:11 | W.PN.HOSP.TC ---
Today's Communication/Plan
-
complex dc
await placement
pain control
Assessment / Plan
Assessment / Plan
Impression
Status post mechanical fall with left tibial plateau fracture
Acute ambulatory dysfunction
Leukocytosis
Other conditions:
Psoriatic arthritis
Obesity with BMI of 35 treated with Ozempic.
Tobacco use disorder 1 pack a day
Plan:
Left tibial plateau fracture
Patient was assessed by orthopedics as outpatient with no indication for surgical intervention
Continue PT OT
Case management consultation for placement to correction facility.
Remains NWB for 5-6 weeks
OP f/u with Dr. Santiago
Elevated WBC (patient reports chronic)
Afebrile.
Complains of mild urinary symptoms. Urine culture with contaminants
Urine culture contaminated. No symptoms
Follow WBC trend
'Type 2 diabetes on Ozempic likely for weight loss
Dyslipidemia
PT/OT-SNF. CM aware. Awaiting for insurance.
Anticipated Discharge: Today
Subjective/Interval History
-
Date of Service: July 10, 2024
had some left leg pain earlier today -resolved now
Objective Data
-
Vital Signs:
Vital Signs
Temp Pulse Resp BP Pulse Ox
97.6 F 63 16 113/66 98
07/10/24 07:22 07/10/24 07:22 07/10/24 07:22 07/10/24 07:22 07/10/24 07:22
I&O
07/09/24 07/10/24 07/11/24
06:59 06:59 06:59
Intake Total 1680 / 1680 840 / 840
Balance 1680 / 1680 840 / 840
Physical Exam
-
HEENT: Normocephalic and Atraumatic
Respiratory: Clear to Auscultation
Cardiac: Regular Rhythm and S1/S2
Breast: Deferred by me
GI: Soft, Nontender and Nondistended
Rectal: Deferred by Provider
Genito-urinary: No Costovertebral Tender
Musculoskeletal: No Clubbing, No Cyanosis, No Edema and Other (left knee immobilizer )
Skin: Warm and Dry
Neuro: Awake, Alert, Oriented and AO x 3
Psych: Calm
--- NOTE | 2024-07-10 11:24 | CM ---
Addendum entered by Susan Carrasquillo 07/10/24 14:51:
Patient seen at bedside on , asking about placement options vs home with VN. Patient is willing to go to a SNF, or other recommended resource. SNF referrals responses in all scripts currently declined pending insufficient funding. CM sent
additional referrals and confirmation of MA pending. CM will continue to follow for discharge planning needs.
Original Note:
CM spoke with patient access service representative with [facility], submitted last saturday. 07/03/24, they are still awaiting confirmation from Medicaid and status is pending at this time.
Plan; pending [facility] for home support vs SNF
[2024-07-10] MEDS: NON-FORMULARY ITEM 1 UNIT SC (11:26)
[2024-07-10 14:51] VITALS: BP 119/62
[2024-07-10 23:53] VITALS: BP 137/57
[2024-07-11 07:29] VITALS: BP 135/62
[2024-07-11] MEDS: COLACE 100 MG PO ×2 (08:20→20:12)
[2024-07-11] MEDS: HEPARIN 5000 UNITS SC ×2 (08:20→20:12)
[2024-07-11] MEDS: DESENEX/MITRAZOL/ZEASORB 1 APPLIC TOPICAL (08:20)
[2024-07-11] MEDS: VITAMIN D3 (cholecalciferol) 25 MCG PO (08:20)
[2024-07-11] MEDS: PERCOCET 5/325 1 TABLET PO ×3 (08:23→22:58)
--- NOTE | 2024-07-11 09:13 | W.PN.HOSP.TC ---
Today's Communication/Plan
-
dc
Assessment / Plan
Assessment / Plan
Physical Exam
-
HEENT: Normocephalic and Atraumatic
Respiratory: Clear to Auscultation
Cardiac: Regular Rhythm and S1/S2
GI: Soft, Nontender and Nondistended
Rectal: No bleeding
Genito-urinary: No Costovertebral Tender
Musculoskeletal: No Clubbing, No Cyanosis, No Edema and Other (left knee immobilizer )
Skin: Warm and Dry
Neuro: Awake, Alert, Oriented and AO x 3
Psych: Calm
Impression
Status post mechanical fall with left tibial plateau fracture
Acute ambulatory dysfunction
Leukocytosis
Other conditions:
Psoriatic arthritis
Obesity with BMI of 35 treated with Ozempic.
Tobacco use disorder 1 pack a day
Plan:
Left tibial plateau fracture
Patient was assessed by orthopedics as outpatient with no indication for surgical intervention
Continue PT OT
Case management consultation for placement to senior living facility.
Remains NWB for 5-6 weeks
OP f/u with Dr. Santiago
Elevated WBC (patient reports chronic)
Afebrile.
Complains of mild urinary symptoms. Urine culture with contaminants
Urine culture contaminated. No symptoms
Follow WBC trend
'Type 2 diabetes on Ozempic likely for weight loss
Dyslipidemia
PT/OT-SNF. CM aware. Awaiting for insurance.
Total time spent to see the patient, examine the patient, review data and lab results, discuss treatment plan with patient, nursing staff around 55 minutes
Anticipated Discharge: Today
Subjective/Interval History
-
Date of Service: July 11, 2024
Pain in left knee
no chest pain
No sob
No fevers
No headache
Objective Data
-
Vital Signs:
Vital Signs
Temp Pulse Resp BP Pulse Ox
97.7 F 67 17 135/62 97
07/11/24 07:29 07/11/24 07:29 07/11/24 07:29 07/11/24 07:29 07/11/24 07:29
I&O
07/10/24 07/11/24 07/12/24
06:59 06:59 06:59
Intake Total 840 / 840 180 / 180
Balance 840 / 840 180 / 180
[2024-07-11 15:12] VITALS: BP 122/59
[2024-07-11 16:25] VITALS: BP 116/66; PULSE 65; O2SAT 97
[2024-07-11] MEDS: DESENEX/MITRAZOL/ZEASORB TOPICAL (20:40)
[2024-07-11 23:00] VITALS: BP 129/67
[2024-07-12] MEDS: VITAMIN D3 (cholecalciferol) 25 MCG PO (06:13)
[2024-07-12] MEDS: HEPARIN 5000 UNITS SC ×2 (06:13→19:34)
[2024-07-12] MEDS: PERCOCET 5/325 1 TABLET PO ×3 (06:14→19:34)
[2024-07-12] MEDS: COLACE 100 MG PO ×2 (06:14→19:34)
[2024-07-12 07:21] VITALS: BP 123/62
[2024-07-12] MEDS: DESENEX/MITRAZOL/ZEASORB 1 APPLIC TOPICAL ×2 (08:17→19:36)
--- NOTE | 2024-07-12 10:04 | W.PN.HOSP.TC ---
Today's Communication/Plan
-
dc planning
Assessment / Plan
Assessment / Plan
Physical Exam
-
HEENT: Normocephalic and Atraumatic
Respiratory: Clear to Auscultation
Cardiac: Regular Rhythm and S1/S2
GI: Soft, Nontender and Nondistended
Rectal: No bleeding
Genito-urinary: No Costovertebral Tender
Musculoskeletal: No Clubbing, No Cyanosis, No Edema and Other (left knee immobilizer )
Skin: Warm and Dry
Neuro: Awake, Alert, Oriented and AO x 3
Psych: Calm
Impression
Status post mechanical fall with left tibial plateau fracture
Acute ambulatory dysfunction
Leukocytosis
Other conditions:
Psoriatic arthritis
Obesity with BMI of 35 treated with Ozempic.
Tobacco use disorder 1 pack a day
Plan:
Left tibial plateau fracture
Patient was assessed by orthopedics as outpatient with no indication for surgical intervention
Continue PT OT
Case management consultation for placement to [facility] facility.
Remains NWB for 5-6 weeks
OP f/u with Dr. Santiago
Elevated WBC (patient reports chronic)
Afebrile.
Complains of mild urinary symptoms. Urine culture with contaminants
Urine culture contaminated. No symptoms
Follow WBC trend
'Type 2 diabetes on Ozempic likely for weight loss
Dyslipidemia
PT/OT-SNF. CM aware. Awaiting for insurance.
Total time spent to see the patient, examine the patient, review data and lab results, discuss treatment plan with patient, nursing staff around 45 minutes
Anticipated Discharge: Today
Subjective/Interval History
-
Date of Service: July 12, 2024
No chest pain
No sob
Objective Data
-
Vital Signs:
Vital Signs
Temp Pulse Resp BP Pulse Ox
97.5 F 65 17 123/62 97
07/12/24 07:21 07/12/24 07:21 07/12/24 07:21 07/12/24 07:21 07/12/24 07:21
I&O
07/11/24 07/12/24 07/13/24
06:59 06:59 06:59
Intake Total 180 / 180 720 / 720
Balance 180 / 180 720 / 720
[2024-07-12] MEDS: NON-FORMULARY ITEM SC (10:34)
[2024-07-12 15:15] VITALS: BP 102/76
[2024-07-12 23:00] VITALS: BP 124/68
--- NOTE | 2024-07-13 00:30 | PTCARENOTE ---
Pt w/small amount of emesis, verbalizes relief of nausea. Requesting saltines. PO encouraged to take PO pain medicine. No further complaints of nausea/emesis. Tolerated PO percocet.
[2024-07-13] MEDS: PERCOCET 5/325 1 TABLET PO ×3 (01:35→15:30)
[2024-07-13 07:05] VITALS: BP 123/67
[2024-07-13] MEDS: HEPARIN 5000 UNITS SC ×2 (08:40→21:08)
[2024-07-13] MEDS: VITAMIN D3 (cholecalciferol) 25 MCG PO (08:40)
[2024-07-13] MEDS: COLACE 100 MG PO ×2 (08:40→21:10)
[2024-07-13] MEDS: DESENEX/MITRAZOL/ZEASORB 1 APPLIC TOPICAL ×2 (08:40→21:08)
--- NOTE | 2024-07-13 14:51 | W.PN.HOSP.TC ---
Today's Communication/Plan
-
Placement
Assessment / Plan
Assessment / Plan
Impression
Status post mechanical fall with left tibial plateau fracture
Acute ambulatory dysfunction
Leukocytosis
Other conditions:
Psoriatic arthritis
Obesity with BMI of 35 treated with Ozempic.
Tobacco use disorder 1 pack a day
Plan:
Left tibial plateau fracture
Patient was assessed by orthopedics as outpatient with no indication for surgical intervention
Continue PT OT
[facility] management consultation for placement to [facility].
Remains NWB for 5-6 weeks
OP f/u with Dr. Santiago
Elevated WBC (patient reports chronic)
Afebrile.
Complains of mild urinary symptoms. Urine culture with contaminants
Urine culture contaminated. No symptoms
Follow WBC trend
'Type 2 diabetes on Ozempic likely for weight loss
Dyslipidemia
PT/OT-SNF. CM aware. Awaiting for insurance.
s
Anticipated Discharge: 24 - 48 hours
Subjective/Interval History
-
Date of Service: July 13, 2024
Objective Data
-
Vital Signs:
Vital Signs
Temp Pulse Resp BP Pulse Ox
97.9 F 66 18 123/67 97
07/13/24 07:05 07/13/24 07:05 07/13/24 07:05 07/13/24 07:05 07/13/24 07:05
I&O
07/12/24 07/13/24 07/14/24
06:59 06:59 06:59
Intake Total 720 / 720 720 / 720
Balance 720 / 720 720 / 720
Physical Exam
-
HEENT: Normocephalic and Atraumatic
Respiratory: Clear to Auscultation
Cardiac: Regular Rhythm and S1/S2
Breast: Deferred by me
GI: Soft, Nontender and Nondistended
Rectal: Deferred by Provider
Genito-urinary: No Costovertebral Tender
Musculoskeletal: No Clubbing, No Cyanosis, No Edema and Other (left knee immobilizer )
Skin: Warm and Dry
Neuro: Awake, Alert, Oriented and AO x 3
Psych: Calm
[2024-07-13 15:00] VITALS: BP 124/62
[2024-07-13 16:10] VITALS: BP 111/68; PULSE 73; O2SAT 96
--- NOTE | 2024-07-13 16:32 | CM ---
PT Ot continue to see patient .
Pt has no insurance.
NWB left leg.
[facility] obtained information from pt to apply for discount for hospital stay.
Pt was told from prior CM to go to web site to apply for insurance. Pt has tablet to search.
Pt given customer care coordinator list and encouraged to ask neighbors for assistance.
Pt has walker commode . OT suggested WC with leg raise left side.
Called [employer] for rental cost. Spoke with Lillian Phillips if her restoration had any donations.
Pt has 5 steps to enter.Will need to arrange transportation.
PLAN Discharge to home
[2024-07-13 23:20] VITALS: BP 119/69
[2024-07-14] MEDS: PERCOCET 5/325 1 TABLET PO ×2 (00:28→07:59)
[2024-07-14] MEDS: VITAMIN D3 (cholecalciferol) 25 MCG PO (08:00)
[2024-07-14] MEDS: COLACE PO ×2 (08:00→19:52)
[2024-07-14] MEDS: DESENEX/MITRAZOL/ZEASORB 1 APPLIC TOPICAL ×2 (08:00→19:50)
[2024-07-14] MEDS: HEPARIN 5000 UNITS SC ×2 (08:00→19:52)
[2024-07-14 08:17] VITALS: BP 126/65
[2024-07-14 15:49] VITALS: BP 131/66
--- NOTE | 2024-07-14 16:20 | CM ---
NWB left leg.
[facility] obtained information from pt to apply for discount for hospital stay and apply for Medicaid .Encourage to apply for medicaid also with her tablet .
Pt was told from prior CM to go to web site to apply for insurance. Pt has tablet to search.
Pt given adult care provider list and encouraged to ask neighbors for assistance.
Pt has walker ,commode , Lyft chair to be delivered tomorrow.
Pt will borrow wheel chair .
Pt has 5 steps to enter.Will need to arrange transportation.
PLAN Discharge to home
--- NOTE | 2024-07-14 16:39 | W.PN.HOSP.TC ---
Today's Communication/Plan
-
Ongoing disposition efforts with now plan for home discharge
Assessment / Plan
Assessment / Plan
Impression
Status post mechanical fall with left tibial plateau fracture
Acute ambulatory dysfunction
Leukocytosis
Other conditions:
Psoriatic arthritis
Obesity with BMI of 35 treated with Ozempic.
Tobacco use disorder 1 pack a day
Plan:
Left tibial plateau fracture
Patient was assessed by orthopedics as outpatient with no indication for surgical intervention
Continue PT OT
Case management consultation for placement to care home facility.
Remains NWB for 5-6 weeks
OP f/u with Dr. Santiago
Elevated WBC (patient reports chronic)
Afebrile.
Complains of mild urinary symptoms. Urine culture with contaminants
Urine culture contaminated. No symptoms
Follow WBC trend
'Type 2 diabetes on Ozempic likely for weight loss
Dyslipidemia
PT/OT-SNF. CM aware. Awaiting for insurance.
s
Anticipated Discharge: Within 24 hours
Subjective/Interval History
-
Date of Service: July 14, 2024
Objective Data
-
Vital Signs:
Vital Signs
Temp Pulse Resp BP Pulse Ox
98 F 72 14 131/66 97
07/14/24 15:49 07/14/24 15:49 07/14/24 15:49 07/14/24 15:49 07/14/24 15:49
I&O
07/13/24 07/14/24 07/15/24
06:59 06:59 06:59
Intake Total 720 / 720 2400 / 2400
Balance 720 / 720 2400 / 2400
Physical Exam
-
HEENT: Normocephalic and Atraumatic
Respiratory: Clear to Auscultation
Cardiac: Regular Rhythm and S1/S2
Breast: Deferred by me
GI: Soft, Nontender and Nondistended
Rectal: Deferred by Provider
Genito-urinary: No Costovertebral Tender
Musculoskeletal: No Clubbing, No Cyanosis, No Edema and Other (left knee immobilizer )
Skin: Warm and Dry
Neuro: Awake, Alert, Oriented and AO x 3
Psych: Calm
[2024-07-14] MEDS: TYLENOL 650 MG PO (19:51)
[2024-07-14 23:30] VITALS: BP 126/71
[2024-07-15 07:15] VITALS: BP 132/65
[2024-07-15] MEDS: DESENEX/MITRAZOL/ZEASORB 1 APPLIC TOPICAL (08:22)
[2024-07-15] MEDS: COLACE PO (08:22)
[2024-07-15] MEDS: HEPARIN 5000 UNITS SC (08:25)
[2024-07-15] MEDS: VITAMIN D3 (cholecalciferol) 25 MCG PO (08:26)
--- NOTE | 2024-07-15 12:17 | W.DS.TRANS ---
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
-
Discharge Instructions:
Discharge Diagnosis/Procedures Status post mechanical fall with left tibial
plateau fracture
Acute ambulatory dysfunction
Diet Regular
Instructions:
Stand-Alone Forms:
Changes to Home Medications: No
Discharge Medications:
DC Medications w/original date entered in [employer]
cholecalciferol (vitamin D3) 25 mcg (1,000 unit) tablet (Vitamin D3) 25 mcg PO DAILY Supplement 06/30/24
evolocumab 140 mg/mL subcutaneous pen injector (Repatha SureClick) 140 mg SC Q2W cholesterol 06/30/24
oxycodone-acetaminophen 5 mg-325 mg tablet 1 tab PO Q6HPRN PRN severe pain 06/30/24
semaglutide 0.25 mg or 0.5 mg (2 mg/1.5 mL) subcutaneous pen injector (Ozempic) 0.5 mg SC FR weight loss/diabetes 06/30/24
Home Medication Changes
Pending Results: No
--- NOTE | 2024-07-15 12:20 | CM ---
MD entered order for discharge
[facility] involved due to pt has no insurance.
Pt said she is setting up care givers.
Pt has walker ,commode , Lyft chair to be delivered today.
Pt borrowed wheel chair .
Pt has 5 steps to enter.
Pt arranged her own transportation with [employer] at 3 pm today .
PLAN Discharge to home
[2024-07-15 14:49] VITALS: BP 136/65
== END 2024-07-15 15:41 | disposition home or self-care (01) ==
LOC: 3 WEST ACU 17:04
PROVIDERS: ADMITTING PHYSICIAN Hospitalist; ATTENDING PHYSICIAN Internal Medicine; EMERGENCY PHYSICIAN Emergency Medicine
DX: S82.142A Displaced bicondylar fracture of left tibia, initial encounter for closed fracture (principal); E78.00 Pure hypercholesterolemia, unspecified; F17.210 Nicotine dependence, cigarettes, uncomplicated; W19.XXXA Unspecified fall, initial encounter; Y93.9 Activity, unspecified; Y92.9 Unspecified place or not applicable; R26.2 Difficulty in walking, not elsewhere classified; D72.829 Elevated white blood cell count, unspecified; L40.50 Arthropathic psoriasis, unspecified; E11.9 Type 2 diabetes mellitus without complications; E66.9 Obesity, unspecified; F32.A Depression, unspecified; Z68.35 Body mass index [BMI] 35.0-35.9, adult; Z75.1 Person awaiting admission to adequate facility elsewhere; Z79.85 Long-term (current) use of injectable non-insulin antidiabetic drugs; Z91.018 Allergy to other foods; Z59.71 Insufficient health insurance coverage
CPT/HCPCS: 80053; 81003; 81015; 82962; 85025; 87070; 87086; 97530; 97535; 99285; 99406; G0378